=== PATIENT | female | born 1930 | race Caucasian/White ===

== ENCOUNTER 2018-07-21 11:22 | Inpatient (IN) ==
[2018-07-21] MEDS ORDERED: ACETAMINOPHEN 500 MG TABLET PO STA (11:57)
[2018-07-21] MEDS ORDERED: ONDANSETRON 4 MG/2 ML VIAL IV STA (11:57)
[2018-07-21 12:29] LABS: Basophils % 0.2 % (0.0-0.8); Eosinophils % 0.2 % (0.00-10.9); Hematocrit 37.9 VOL% (35.7-47.0); Hemoglobin 12.8 GM/DL (12.0-16.0); Immature Granulocytes % 0.6 %; Immature Granulocytes Absolute 0.06 #; Lymphocytes # 1.2 10*3/uL (1.4-4.0); Lymphocytes % 11.4 % (21.3-54.2); Mean Corpuscular HGB Conc 33.8 GM/DL (32-36); Mean Corpuscular Volume 90.9 FL (87-102); Mean Platelet Volume 9.6 FL (9.6-12.0); Neutrophils % 79.6 % (38.7-73.9); Platelet Count 228 T/CUMM (130-400); Red Blood Count 4.17 MC/CUMM (3.8-5.5); Red Cell Distribution Width 13.3 % (9.3-17.3); White Blood Count 10.6 T/CUMM (4-12)
[2018-07-21 12:52] LABS: Albumin 3.6 G/DL (3.4-5.0); Bilirubin,Total 1.4 MG/DL (0.2-1.0); Calcium 9.3 MG/DL (8.5-10.1); Osmolality,Calculated 256.2 MOS/KG (273-304); Total Protein 8.1 G/DL (6.4-8.3)
[2018-07-21] MEDS ORDERED: MECLIZINE 25 MG TABLET ONE (13:38)
[2018-07-21] MEDS ORDERED: MECLIZINE 25 MG TABLET PO STA (13:47)
[2018-07-21] MEDS ORDERED: ACETAMINOPHEN 325 MG TABLET PO PRN (14:23)
[2018-07-21] MEDS ORDERED: ONDANSETRON 4 MG/2 ML VIAL IV PRN (14:23)
[2018-07-21] MEDS ORDERED: SODIUM CHLORIDE 0.45% 1,000 ML IV SCH (14:30)
[2018-07-21] MEDS: PANTOPRAZOLE 40 MG TABLET PO SCH (16:13)
[2018-07-21] MEDS ORDERED: traMADol 50 MG TABLET PO PRN (16:22)
[2018-07-21] MEDS ORDERED: diphenhydrAMINE CAP 25 MG CAPSULE PO PRN (16:22)
[2018-07-21] MEDS: ALBUTEROL/IPRATROPIUM 3 ML NEB RESP TX SCH (19:43)
[2018-07-21] MEDS: DEXTROSE 5% NACL 0.45% 1,000 ML IV SCH (20:27)
[2018-07-21] MEDS: DOCUSATE SODIUM 100 MG CAPSULE PO SCH (20:36)
[2018-07-21] MEDS: MECLIZINE 12.5 MG TABLET PO SCH (20:37)
[2018-07-22] MEDS: ALBUTEROL/IPRATROPIUM 3 ML NEB RESP TX SCH ×4 (01:47→19:43)
[2018-07-22 05:18] LABS: Basophils % 0.4 % (0.0-0.8); Eosinophils % 0.4 % (0.00-10.9); Hematocrit 36.4 VOL% (35.7-47.0); Hemoglobin 12.4 GM/DL (12.0-16.0); Immature Granulocytes % 0.5 %; Immature Granulocytes Absolute 0.05 #; Lymphocytes # 1.1 10*3/uL (1.4-4.0); Mean Corpuscular HGB Conc 34.1 GM/DL (32-36); Mean Corpuscular Volume 91.2 FL (87-102); Mean Platelet Volume 9.4 FL (9.6-12.0); Monocytes % 11.4 % (1.7-12.7); Neutrophils % 76.3 % (38.7-73.9); Platelet Count 204 T/CUMM (130-400); Red Blood Count 3.99 MC/CUMM (3.8-5.5); Red Cell Distribution Width 13.2 % (9.3-17.3)
[2018-07-22 05:29] LABS: INR 3.4
[2018-07-22 05:43] LABS: Calcium 8.7 MG/DL (8.5-10.1); Osmolality,Calculated 257.9 MOS/KG (273-304)
[2018-07-22] MEDS: EZETIMIBE/SIMVASTATIN 10-40 MG TABLET PO SCH (08:20)
[2018-07-22] MEDS: ASCORBIC ACID 500 MG TABLET PO SCH (08:20)
[2018-07-22] MEDS: ASPIRIN EC 81 MG TABLET PO SCH (08:20)
[2018-07-22] MEDS: PANTOPRAZOLE 40 MG TABLET PO SCH (08:20)
[2018-07-22] MEDS: amLODIPine 5 MG TABLET PO SCH (08:20)
[2018-07-22] MEDS: MECLIZINE 12.5 MG TABLET PO SCH ×4 (08:20→20:41)
[2018-07-22] MEDS: METOPROLOL SUCCINATE XL 100 MG TABLET PO SCH (11:32)
[2018-07-22] MEDS ORDERED: ALBUTEROL/IPRATROPIUM 3 ML NEB RESP TX PRN (11:49)
[2018-07-22] MEDS ORDERED: KETOROLAC 30 MG/1 ML VIAL IV ONE (11:50)
[2018-07-22] MEDS: KETOROLAC 15 MG/1 ML VIAL IV SCH ×2 (13:08→17:32)
[2018-07-22] MEDS: DEXTROSE 5% NACL 0.45% 1,000 ML IV SCH (15:00)
[2018-07-22] MEDS: DOCUSATE SODIUM 100 MG CAPSULE PO SCH (20:40)
[2018-07-23] MEDS: KETOROLAC 15 MG/1 ML VIAL IV SCH ×3 (00:36→11:51)
[2018-07-23] MEDS: ALBUTEROL/IPRATROPIUM 3 ML NEB RESP TX SCH ×3 (01:35→12:47)
[2018-07-23] MEDS: ACETAMINOPHEN 325 MG TABLET PO PRN ×2 (02:46→14:06)
[2018-07-23] MEDS: DEXTROSE 5% NACL 0.45% 1,000 ML IV SCH (05:27)
[2018-07-23 05:28] LABS: Basophils % 0.5 % (0.0-0.8); Eosinophils # 0.2 10*3/uL (0.0-0.87); Eosinophils % 1.9 % (0.00-10.9); Hematocrit 36.2 VOL% (35.7-47.0); Hemoglobin 11.7 GM/DL (12.0-16.0); Immature Granulocytes % 0.5 %; Immature Granulocytes Absolute 0.04 #; Lymphocytes # 1.2 10*3/uL (1.4-4.0); Lymphocytes % 13.7 % (21.3-54.2); Mean Corpuscular HGB Conc 32.3 GM/DL (32-36); Mean Corpuscular Volume 92.8 FL (87-102); Mean Platelet Volume 9.2 FL (9.6-12.0); Monocytes % 12.8 % (1.7-12.7); Neutrophils % 70.6 % (38.7-73.9); Platelet Count 167 T/CUMM (130-400); Red Cell Distribution Width 13.2 % (9.3-17.3); White Blood Count 8.4 T/CUMM (4-12)
[2018-07-23 05:43] LABS: Calcium 8.4 MG/DL (8.5-10.1); Osmolality,Calculated 255.2 MOS/KG (273-304)
[2018-07-23 06:01] LABS: PT Patient Result 31.9 SECS
[2018-07-23] MEDS: ASCORBIC ACID 500 MG TABLET PO SCH (08:12)
[2018-07-23] MEDS: amLODIPine 5 MG TABLET PO SCH (08:12)
[2018-07-23] MEDS: EZETIMIBE/SIMVASTATIN 10-40 MG TABLET PO SCH (08:12)
[2018-07-23] MEDS: ASPIRIN EC 81 MG TABLET PO SCH (08:12)
[2018-07-23] MEDS: METOPROLOL SUCCINATE XL 100 MG TABLET PO SCH (08:12)
[2018-07-23] MEDS: PANTOPRAZOLE 40 MG TABLET PO SCH (08:12)
[2018-07-23] MEDS ORDERED: MULTIVITAMIN (OCUVITE) TABLET PO SCH (09:00)
[2018-07-23] MEDS ORDERED: GLUCOSAM CHON MSM1 C MANG BOSW PO SCH (09:00)
[2018-07-23] MEDS ORDERED: COENZYME Q10 100 MG CAPSULE PO SCH (09:00)
[2018-07-23] MEDS: MECLIZINE 12.5 MG TABLET PO SCH ×2 (10:35→14:14)
[2018-07-23 11:49] VITALS: BP 111/70
== END 2018-07-23 16:52 | disposition home health service (06) | DRG 184 ==
LOC: N.ED 11:22 → N.EDINP 12:51 → N.3E 14:44
PROVIDERS: ADMIT Surgery; ATTEND Surgery

== ENCOUNTER 2018-12-20 02:24 | Inpatient (IN) ==
[2018-12-20] MEDS ORDERED: ONDANSETRON 4 MG/2 ML VIAL IV STA (02:49)
[2018-12-20] MEDS ORDERED: MORPHINE 4 MG/1 ML VIAL IV STA (02:49)
[2018-12-20] MEDS ORDERED: diphenhydrAMINE 50 MG/1 ML VIAL IV STA (02:50)
[2018-12-20] MEDS ORDERED: PIPERACILLIN/TAZOBACTAM 3,375 MG in SODIUM CHLORIDE 0.9% 100 ML IV SCH (03:00)
[2018-12-20 03:08] LABS: Basophils % 0.4 % (0.0-0.8); Eosinophils % 0.1 % (0.00-10.9); Hematocrit 39.4 VOL% (35.7-47.0); Hemoglobin 13.4 GM/DL (12.0-16.0); Immature Granulocytes % 0.5 %; Immature Granulocytes Absolute 0.05 #; Lymphocytes # 0.8 10*3/uL (1.4-4.0); Lymphocytes % 8.1 % (21.3-54.2); Mean Corpuscular Volume 92.7 FL (87-102); Mean Platelet Volume 9.4 FL (9.6-12.0); Monocytes % 5.6 % (1.7-12.7); Neutrophils % 85.3 % (38.7-73.9); Platelet Count 224 T/CUMM (130-400); Red Blood Count 4.25 MC/CUMM (3.8-5.5); White Blood Count 10.1 T/CUMM (4-12)
[2018-12-20 03:21] LABS: INR 1.9; PT Patient Result 20.4 SECS (9.6-12.2); Partial Thromboplastin Time 33.6 SECS (20.8-36.0)
[2018-12-20 03:26] LABS: Albumin 3.7 G/DL (3.4-5.0); Bilirubin,Total 0.8 MG/DL (0.2-1.0); Calcium 9.5 MG/DL (8.5-10.1); Osmolality,Calculated 272.2 MOS/KG (273-304); Total Protein 7.8 G/DL (6.4-8.3)
[2018-12-20] MEDS ORDERED: INFLUENZA VIRUS VACCINE 0.5 ML SYRINGE IM ONE (04:03)
[2018-12-20] MEDS: DEXTROSE 5% LACTATED RINGERS 1,000 ML IV SCH ×3 (04:17→23:45)
[2018-12-20] MEDS ORDERED: CLORAZEPATE 3.75 MG TABLET PO PRN (07:34)
[2018-12-20] MEDS: EZETIMIBE/SIMVASTATIN 10-40 MG TABLET PO SCH (08:40)
[2018-12-20] MEDS: GLUCOSAMINE 500 MG TABLET PO SCH (08:40)
[2018-12-20] MEDS: amLODIPine 5 MG TABLET PO SCH (08:41)
[2018-12-20] MEDS: MULTIVITAMIN (OCUVITE) TABLET PO SCH (08:41)
[2018-12-20] MEDS: ASPIRIN EC 81 MG TABLET PO SCH (08:41)
[2018-12-20] MEDS: ASCORBIC ACID 500 MG TABLET PO SCH (08:41)
[2018-12-20] MEDS: METOPROLOL SUCCINATE XL 100 MG TABLET PO SCH (08:42)
[2018-12-20] MEDS: MORPHINE 4 MG/1 ML VIAL IV PRN ×2 (08:42→17:38)
[2018-12-20] MEDS: ONDANSETRON 4 MG/2 ML VIAL IV PRN ×2 (08:42→17:38)
[2018-12-20] MEDS: PANTOPRAZOLE 40 MG VIAL IV SCH (08:42)
[2018-12-20] MEDS ORDERED: ceFAZolin 1,000 MG in SYRINGE 1 EACH IV ONE (09:35)
[2018-12-20] MEDS: COENZYME Q10 100 MG CAPSULE PO SCH (10:58)
[2018-12-20 19:21] LABS: INR 2.2
[2018-12-20 19:26] LABS: PT Patient Result 23.7 SECS (9.6-12.2)
[2018-12-20] MEDS ORDERED: SODIUM CHLORIDE 0.9% 1,000 ML IV PRN (19:46)
[2018-12-20] MEDS: DOCUSATE SODIUM 100 MG CAPSULE PO SCH (21:45)
[2018-12-20] MEDS ORDERED: FUROSEMIDE 20 MG/2 ML VIAL IV ONE (23:34)
[2018-12-20] MEDS ORDERED: diphenhydrAMINE 50 MG/1 ML VIAL IV ONE (23:35)
[2018-12-21 01:20] LABS: INR 1.7; PT Patient Result 18.7 SECS (9.6-12.2)
[2018-12-21 05:46] LABS: INR 1.8; PT Patient Result 19.9 SECS (9.6-12.2)
[2018-12-21] MEDS ORDERED: PHYTONADIONE INJ 10 MG in SODIUM CHLORIDE 0.9% 50 ML IV ONE (06:55)
[2018-12-21] MEDS ORDERED: ceFAZolin 1,000 MG in SYRINGE 1 EACH IV ONE (07:00)
[2018-12-21 09:47] LABS: INR 1.6; PT Patient Result 17.5 SECS (9.6-12.2)
[2018-12-21] MEDS: DEXTROSE 5% LACTATED RINGERS 1,000 ML IV SCH ×3 (10:19→18:50)
[2018-12-21] MEDS ORDERED: PHYTONADIONE 5 MG/5 ML ORAL.SYR PO ONE (10:55)
[2018-12-21] MEDS: PANTOPRAZOLE 40 MG VIAL IV SCH (11:18)
[2018-12-21] MEDS: amLODIPine 5 MG TABLET PO SCH (12:17)
[2018-12-21] MEDS: METOPROLOL SUCCINATE XL 100 MG TABLET PO SCH (12:17)
[2018-12-21] MEDS: ASPIRIN EC 81 MG TABLET PO SCH (12:42)
[2018-12-21] MEDS: COENZYME Q10 100 MG CAPSULE PO SCH (12:42)
[2018-12-21] MEDS: MULTIVITAMIN (OCUVITE) TABLET PO SCH (12:43)
[2018-12-21] MEDS: GLUCOSAMINE 500 MG TABLET PO SCH (12:43)
[2018-12-21] MEDS: EZETIMIBE/SIMVASTATIN 10-40 MG TABLET PO SCH (12:50)
[2018-12-21] MEDS: ASCORBIC ACID 500 MG TABLET PO SCH (12:50)
[2018-12-21] MEDS: ONDANSETRON 4 MG/2 ML VIAL IV PRN (16:13)
[2018-12-21] MEDS ORDERED: HYDROmorphone 2 MG/1 ML VIAL IV PRN (17:12)
[2018-12-21] MEDS: oxyCODONE/ACETAMINOPHEN 5-325 MG TABLET PO PRN ×2 (17:20→18:05)
[2018-12-21] MEDS: SIMETHICONE CHEW 80 MG TABLET PO SCH (21:11)
[2018-12-22] MEDS: ONDANSETRON 4 MG/2 ML VIAL IV PRN ×2 (03:56→09:24)
[2018-12-22] MEDS: oxyCODONE/ACETAMINOPHEN 5-325 MG TABLET PO PRN ×2 (03:59→21:25)
[2018-12-22] MEDS: DOCUSATE SODIUM 100 MG CAPSULE PO SCH ×2 (04:08→21:26)
[2018-12-22 05:51] LABS: Basophils % 0.5 % (0.0-0.8); Eosinophils # 0.1 10*3/uL (0.0-0.87); Eosinophils % 2.1 % (0.00-10.9); Hematocrit 45.6 VOL% (35.7-47.0); Hemoglobin 15.1 GM/DL (12.0-16.0); Immature Granulocytes % 0.2 %; Immature Granulocytes Absolute 0.01 #; Lymphocytes % 15.5 % (21.3-54.2); Mean Corpuscular HGB Conc 33.1 GM/DL (32-36); Mean Corpuscular Volume 93.8 FL (87-102); Mean Platelet Volume 9.8 FL (9.6-12.0); Monocytes % 13.7 % (1.7-12.7); Platelet Count 236 T/CUMM (130-400); Red Blood Count 4.86 MC/CUMM (3.8-5.5); Red Cell Distribution Width 12.9 % (9.3-17.3); White Blood Count 6.6 T/CUMM (4-12)
[2018-12-22 06:00] LABS: INR 1.1; PT Patient Result 11.4 SECS (9.6-12.2)
[2018-12-22 06:07] LABS: Calcium 9.3 MG/DL (8.5-10.1)
[2018-12-22] MEDS ORDERED: ceFAZolin 1,000 MG in SYRINGE 1 EACH IV ONE (06:30)
[2018-12-22] MEDS ORDERED: BUPIVACAINE MPF 0.25% 30 ML VIAL ONE (06:36)
[2018-12-22] MEDS ORDERED: TISSUE ADHESIVE 1 EACH APPLICATOR TOP ONE ×2 (06:36→08:30)
[2018-12-22] MEDS ORDERED: LIDOCAINE 1%/EPI INJ 20 ML VIAL ONE (06:36)
[2018-12-22] MEDS: POTASSIUM CHLORIDE RIDER 10 MEQ in PREMIX 1 EACH IV SCH ×8 (07:00→21:20)
[2018-12-22] MEDS ORDERED: BUPIVACAINE 0.5% 50 ML VIAL ONE (07:06)
[2018-12-22] MEDS ORDERED: DEXAMETHASONE 4 MG/1 ML VIAL ONE ×2 (07:06→09:15)
[2018-12-22] MEDS ORDERED: EPINEPHrine 1 MG/ML VIAL ONE (07:06)
[2018-12-22] MEDS ORDERED: POTASSIUM CHLORIDE RIDER 100 ML IV ONE (08:06)
[2018-12-22] MEDS: ASPIRIN EC 81 MG TABLET PO SCH (09:00)
[2018-12-22] MEDS: EZETIMIBE/SIMVASTATIN 10-40 MG TABLET PO SCH (09:00)
[2018-12-22] MEDS: SIMETHICONE CHEW 80 MG TABLET PO SCH ×4 (09:00→21:19)
[2018-12-22] MEDS: GLUCOSAMINE 500 MG TABLET PO SCH (09:00)
[2018-12-22] MEDS: MULTIVITAMIN (OCUVITE) TABLET PO SCH (09:00)
[2018-12-22] MEDS: COENZYME Q10 100 MG CAPSULE PO SCH (09:00)
[2018-12-22] MEDS: ASCORBIC ACID 500 MG TABLET PO SCH (09:00)
[2018-12-22] MEDS ORDERED: SEVOFLURANE 1 UNIT/15 MINUTE INH ONE (09:14)
[2018-12-22] MEDS ORDERED: PROPOFOL 200 MG/20 ML VIAL IV ONE (09:14)
[2018-12-22] MEDS ORDERED: LIDOCAINE 2% 5 ML VIAL ONE (09:14)
[2018-12-22] MEDS ORDERED: ETOMIDATE 40 MG/20 ML VIAL IV ONE (09:15)
[2018-12-22] MEDS ORDERED: fentaNYL 100 MCG/2 ML VIAL ONE (09:15)
[2018-12-22] MEDS ORDERED: MIDAZOLAM 2 MG/2 ML VIAL ONE (09:15)
[2018-12-22] MEDS ORDERED: GLYCOPYRROLATE 0.4 MG/2 ML VIAL ONE (09:15)
[2018-12-22] MEDS ORDERED: ONDANSETRON 4 MG/2 ML VIAL ONE (09:15)
[2018-12-22] MEDS ORDERED: ROCURONIUM 100 MG/10 ML VIAL IV ONE (09:16)
[2018-12-22] MEDS ORDERED: PHENYLEPHRINE 1 MG/10 ML SYRINGE IV ONE (09:16)
[2018-12-22] MEDS ORDERED: LACTATED RINGERS 1,000 ML IV ONE (09:16)
[2018-12-22] MEDS ORDERED: NEOSTIGMINE 10 MG/10 ML VIAL ONE (09:16)
[2018-12-22] MEDS ORDERED: SUCCINYLCHOLINE 200 MG/10 ML VIAL ONE (09:16)
[2018-12-22] MEDS ORDERED: ONDANSETRON 4 MG/2 ML VIAL IV PRN (09:19)
[2018-12-22] MEDS ORDERED: HYDROmorphone 2 MG/1 ML VIAL IV PRN (09:19)
[2018-12-22] MEDS: METOPROLOL SUCCINATE XL 100 MG TABLET PO SCH (14:30)
[2018-12-22] MEDS: amLODIPine 5 MG TABLET PO SCH (14:30)
[2018-12-22] MEDS: PANTOPRAZOLE 40 MG VIAL IV SCH (14:30)
[2018-12-22] MEDS: DEXTROSE 5% LACTATED RINGERS 1,000 ML IV SCH (14:43)
[2018-12-22] MEDS ORDERED: WARFARIN 3 MG TABLET PO SCH (18:00)
[2018-12-22] MEDS ORDERED: WARFARIN 1 MG TABLET PO SCH (18:00)
[2018-12-23 05:16] LABS: Basophils % 0.1 % (0.0-0.8); Hematocrit 36.6 VOL% (35.7-47.0); Hemoglobin 12.1 GM/DL (12.0-16.0); Immature Granulocytes % 0.4 %; Immature Granulocytes Absolute 0.04 #; Lymphocytes # 0.7 10*3/uL (1.4-4.0); Lymphocytes % 7.2 % (21.3-54.2); Mean Corpuscular HGB Conc 33.1 GM/DL (32-36); Mean Corpuscular Volume 94.1 FL (87-102); Mean Platelet Volume 9.7 FL (9.6-12.0); Monocytes % 8.5 % (1.7-12.7); Neutrophils % 83.8 % (38.7-73.9); Platelet Count 209 T/CUMM (130-400); Red Blood Count 3.89 MC/CUMM (3.8-5.5); Red Cell Distribution Width 12.8 % (9.3-17.3); White Blood Count 9.3 T/CUMM (4-12)
[2018-12-23 05:24] LABS: INR 1.1; PT Patient Result 12.2 SECS (9.6-12.2)
[2018-12-23 05:44] LABS: Calcium 8.4 MG/DL (8.5-10.1); Osmolality,Calculated 266.4 MOS/KG (273-304)
[2018-12-23] MEDS: DEXTROSE 5% LACTATED RINGERS 1,000 ML IV SCH (08:03)
[2018-12-23] MEDS: PANTOPRAZOLE 40 MG VIAL IV SCH (08:32)
[2018-12-23] MEDS: METOPROLOL SUCCINATE XL 100 MG TABLET PO SCH (08:33)
[2018-12-23] MEDS: ASCORBIC ACID 500 MG TABLET PO SCH (08:33)
[2018-12-23] MEDS: SIMETHICONE CHEW 80 MG TABLET PO SCH (08:33)
[2018-12-23] MEDS: COENZYME Q10 100 MG CAPSULE PO SCH (08:33)
[2018-12-23] MEDS: MULTIVITAMIN (OCUVITE) TABLET PO SCH (08:33)
[2018-12-23] MEDS: EZETIMIBE/SIMVASTATIN 10-40 MG TABLET PO SCH (08:33)
[2018-12-23] MEDS: GLUCOSAMINE 500 MG TABLET PO SCH (08:33)
[2018-12-23] MEDS: ASPIRIN EC 81 MG TABLET PO SCH (08:33)
[2018-12-23] MEDS: amLODIPine 5 MG TABLET PO SCH (08:33)
[2018-12-23] MEDS: POTASSIUM CHLORIDE RIDER 10 MEQ in PREMIX 1 EACH IV SCH (09:15)
[2018-12-23] MEDS ORDERED: MAGNESIUM OXIDE 400 MG TABLET PO SCH (09:24)
[2018-12-23 11:46] VITALS: BP 144/94
[2018-12-23] MEDS ORDERED: MAGNESIUM OXIDE 400 MG TABLET PO ONE (13:13)
== END 2018-12-23 13:47 | disposition home or self-care (01) | DRG 351 ==
LOC: EDBD → EDUNIT# → N.ED 02:24 → N.EDINP 02:24 → N.3E 03:32
PROVIDERS: ADMIT Surgery; ATTEND Surgery

== ENCOUNTER 2021-08-03 06:50 | Inpatient (IN) ==
[2021-07-31 12:56] LABS: Basophils # 0.1 10*3/uL (0.0-0.2); Basophils % 0.7 % (0.0-0.8); Eosinophils # 0.1 10*3/uL (0.0-0.87); Eosinophils % 1.2 % (0.00-10.9); Hematocrit 30.7 VOL% (35.7-47.0); Hemoglobin 9.9 GM/DL (12.0-16.0); Immature Granulocytes % 0.4 %; Immature Granulocytes Absolute 0.03 #; Mean Corpuscular HGB Conc 32.2 GM/DL (32-36); Mean Corpuscular Volume 88.7 FL (87-102); Mean Platelet Volume 9.1 FL (9.6-12.0); Monocytes # 0.8 10*3/uL (0.11-0.8); Monocytes % 9.9 % (1.7-12.7); Neutrophils % 74.8 % (38.7-73.9); Platelet Count 345 T/CUMM (130-400); Red Blood Count 3.46 MC/CUMM (3.8-5.5); Red Cell Distribution Width 13.5 % (9.3-17.3)
[2021-07-31 13:07] LABS: Calcium 8.7 MG/DL (8.5-10.1); Osmolality,Calculated 261.8 MOS/KG (273-304); Potassium 4.9 MMOL/L (3.5-5.1)
[2021-07-31 13:08] LABS: INR 2.6; PT Patient Result 26.6 SECS (10.5-12.0); Partial Thromboplastin Time 42.6 SECS (23.8-32.1)
[~2021-08-03 06:50] MED LIST: ALVIMOPAN 12 MG CAPSULE PO ONE; ERTAPENEM 1,000 MG in SODIUM CHLORIDE 0.9% 100 ML IV ONE
[2021-08-03 07:43] LABS: INR 1.3; PT Patient Result 14.4 SECS (10.5-12.0); Partial Thromboplastin Time 34.2 SECS (23.8-32.1)
[2021-08-03 07:59] LABS: Calcium 8.9 MG/DL (8.5-10.1); Osmolality,Calculated 263.7 MOS/KG (273-304); Potassium 4.8 MMOL/L (3.5-5.1)
[2021-08-03] MEDS ORDERED: LACTATED RINGERS 1,000 ML IV SCH (08:30)
[2021-08-03] MEDS ORDERED: FAMOTIDINE 20 MG TABLET PO ONE (08:43)
[2021-08-03] MEDS ORDERED: DIAZEPAM 5 MG TABLET PO ONE (08:43)
[2021-08-03] MEDS ORDERED: DEXAMETHASONE 4 MG/1 ML VIAL ONE (08:58)
[2021-08-03] MEDS ORDERED: MIDAZOLAM 2 MG/2 ML VIAL ONE (08:58)
[2021-08-03] MEDS ORDERED: ROPIVACAINE 0.5% 30 ML VIAL ONE (08:58)
[2021-08-03] MEDS ORDERED: fentaNYL 100 MCG/2 ML VIAL ONE (08:58)
[2021-08-03] MEDS ORDERED: ONDANSETRON 4 MG/2 ML VIAL ONE ×2 (08:58→12:40)
[2021-08-03] MEDS ORDERED: LIDOCAINE 2% 5 ML VIAL ONE ×2 (08:58→11:03)
[2021-08-03] MEDS ORDERED: ETOMIDATE 40 MG/20 ML VIAL IV ONE (11:03)
[2021-08-03] MEDS ORDERED: SODIUM CHLORIDE 0.9% 100 ML IV ONE (11:03)
[2021-08-03] MEDS ORDERED: propofoL 200 MG/20 ML VIAL IV ONE (11:03)
[2021-08-03] MEDS ORDERED: SEVOFLURANE 1 UNIT/15 MINUTE INH ONE ×6 (11:03→12:02)
[2021-08-03] MEDS ORDERED: ROCURONIUM 50 MG/5 ML VIAL IV ONE (11:03)
[2021-08-03] MEDS ORDERED: PHENYLEPHRINE 10 MG/1 ML VIAL IV ONE (11:04)
[2021-08-03] MEDS ORDERED: INDOCYANINE GREEN 25 MG VIAL IV ONE (11:21)
[2021-08-03] MEDS ORDERED: TISSUE ADHESIVE 1 EACH APPLICATOR TOP ONE (11:33)
[2021-08-03] MEDS ORDERED: SUGAMMADEX 200 MG/2 ML VIAL IV ONE (11:56)
[2021-08-03 12:05] LABS: Bacteria,Urine Occasional /HPF (Few); Bilirubin,Urine Negative (Negative); Blood, Urine Negative (Negative); Glucose,Urine (UA) Negative (Negative); Ketones,Urine Negative (Negative); Mucus,Urine Occasional /LPF (Occasional); Nitrite,Urine Negative (Negative); Protein,Urine Negative (Negative); RBC,Urine 1 /HPF (0-4); Urine Appearance Clear (Clear); Urine Color Yellow (Yellow); Urine Urobilinogen 0.2 eU/dL (<2.0)
[2021-08-03] MEDS ORDERED: MEPERIDINE 25 MG/1 ML VIAL ONE (12:40)
[2021-08-03] MEDS ORDERED: HYDROmorphone 1 MG/1 ML SYRINGE IV PRN ×2 (12:41→12:42)
[2021-08-03] MEDS ORDERED: ONDANSETRON 4 MG/2 ML VIAL IV PRN ×2 (12:41→12:42)
[2021-08-03] MEDS ORDERED: MEPERIDINE 25 MG/1 ML VIAL IV PRN (12:48)
[2021-08-03] MEDS: LACTATED RINGERS 1,000 ML IV SCH (13:05)
[2021-08-03] MEDS: METOPROLOL TARTRATE 50 MG TABLET PO SCH ×2 (13:05→21:22)
[2021-08-03] MEDS ORDERED: KETOROLAC 30 MG/1 ML VIAL ONE (13:11)
[2021-08-03] MEDS: KETOROLAC 15 MG/1 ML VIAL IV SCH ×2 (13:13→19:05)
[2021-08-03 13:38] LABS: Basophils % 0.2 % (0.0-0.8); Hematocrit 29.1 VOL% (35.7-47.0); Hemoglobin 9.1 GM/DL (12.0-16.0); Immature Granulocytes % 0.6 %; Immature Granulocytes Absolute 0.05 #; Lymphocytes # 0.6 10*3/uL (1.4-4.0); Lymphocytes % 6.9 % (21.3-54.2); Mean Corpuscular HGB Conc 31.3 GM/DL (32-36); Mean Corpuscular Volume 89.3 FL (87-102); Mean Platelet Volume 8.5 FL (9.6-12.0); Monocytes # 0.2 10*3/uL (0.11-0.8); Neutrophils % 90.3 % (38.7-73.9); Platelet Count 293 T/CUMM (130-400); Red Blood Count 3.26 MC/CUMM (3.8-5.5); Red Cell Distribution Width 13.3 % (9.3-17.3); White Blood Count 8.7 T/CUMM (4-12)
[2021-08-03 14:04] LABS: Calcium 8.2 MG/DL (8.5-10.1); Osmolality,Calculated 264.7 MOS/KG (273-304); Potassium 4.1 MMOL/L (3.5-5.1)
[2021-08-03] MEDS: amLODIPine 5 MG TABLET PO SCH (21:20)
[2021-08-03] MEDS: SIMVASTATIN 40 MG TABLET PO SCH (21:20)
[2021-08-03] MEDS: FERROUS SULFATE 325 MG TABLET PO SCH (21:20)
[2021-08-03] MEDS: SUCRALFATE 1 GM/10 ML UDCUP PO SCH (21:20)
[2021-08-03] MEDS: CARBIDOPA/LEVODOPA 25-100 MG TABLET PO SCH (21:20)
[2021-08-03] MEDS: ALVIMOPAN 12 MG CAPSULE PO SCH (21:20)
[2021-08-04] MEDS: LACTATED RINGERS 1,000 ML IV SCH ×2 (00:16→09:18)
[2021-08-04] MEDS: KETOROLAC 15 MG/1 ML VIAL IV SCH ×4 (01:15→18:36)
[2021-08-04 05:18] LABS: Basophils % 0.1 % (0.0-0.8); Hematocrit 24.4 VOL% (35.7-47.0); Hemoglobin 7.7 GM/DL (12.0-16.0); Immature Granulocytes % 0.4 %; Immature Granulocytes Absolute 0.07 #; Lymphocytes # 0.5 10*3/uL (1.4-4.0); Lymphocytes % 3.2 % (21.3-54.2); Mean Corpuscular HGB Conc 31.6 GM/DL (32-36); Mean Corpuscular Volume 89.4 FL (87-102); Mean Platelet Volume 9.2 FL (9.6-12.0); Neutrophils % 90.3 % (38.7-73.9); Platelet Count 248 T/CUMM (130-400); Red Blood Count 2.73 MC/CUMM (3.8-5.5); Red Cell Distribution Width 13.4 % (9.3-17.3); White Blood Count 16.2 T/CUMM (4-12)
[2021-08-04 05:38] LABS: Calcium 8.7 MG/DL (8.5-10.1); Osmolality,Calculated 264.7 MOS/KG (273-304); Potassium 4.7 MMOL/L (3.5-5.1)
[2021-08-04 05:40] LABS: Band Neutrophils 2 % (0-10); Hypochromia Slight; Lymphocytes 2 % (20-55); Microcytosis Slight; Platelet Estimate Adequate; Total Cells Counted 100
[2021-08-04] MEDS: COENZYME Q10 100 MG CAPSULE PO SCH (09:15)
[2021-08-04] MEDS: MULTIVITAMIN (OCUVITE) TABLET PO SCH (09:15)
[2021-08-04] MEDS: ALVIMOPAN 12 MG CAPSULE PO SCH ×2 (09:15→21:53)
[2021-08-04] MEDS: busPIRone 5 MG TABLET PO PRN (09:16)
[2021-08-04] MEDS: WARFARIN 2.5 MG TABLET PO SCH (09:16)
[2021-08-04] MEDS: FERROUS SULFATE 325 MG TABLET PO SCH ×2 (09:17→21:53)
[2021-08-04] MEDS: ENOXAPARIN 40 MG/0.4 ML SYRINGE SUBCUT SCH (09:17)
[2021-08-04] MEDS: METOPROLOL TARTRATE 50 MG TABLET PO SCH ×2 (09:17→21:53)
[2021-08-04] MEDS: CRANBERRY 400 MG PO SCH (09:19)
[2021-08-04] MEDS: SUCRALFATE 1 GM/10 ML UDCUP PO SCH ×2 (09:20→21:53)
[2021-08-04] MEDS: MULTIVITAMIN WITH MINERALS PO SCH (09:22)
[2021-08-04 10:44] LABS: Hematocrit 26.8 VOL% (35.7-47.0); Hemoglobin 8.1 GM/DL (12.0-16.0)
[2021-08-04] MEDS: CARBIDOPA/LEVODOPA 25-100 MG TABLET PO SCH (21:53)
[2021-08-04] MEDS: SIMVASTATIN 40 MG TABLET PO SCH (21:53)
[2021-08-04] MEDS: amLODIPine 5 MG TABLET PO SCH (21:56)
[2021-08-05] MEDS: KETOROLAC 15 MG/1 ML VIAL IV SCH ×4 (02:03→18:37)
[2021-08-05 05:24] LABS: Basophils % 0.1 % (0.0-0.8); Eosinophils % 0.1 % (0.00-10.9); Hematocrit 21.5 VOL% (35.7-47.0); Hemoglobin 6.8 GM/DL (12.0-16.0); Immature Granulocytes % 0.6 %; Immature Granulocytes Absolute 0.09 #; Lymphocytes # 0.7 10*3/uL (1.4-4.0); Lymphocytes % 4.8 % (21.3-54.2); Mean Corpuscular HGB Conc 31.6 GM/DL (32-36); Mean Corpuscular Volume 88.5 FL (87-102); Monocytes # 0.8 10*3/uL (0.11-0.8); Monocytes % 5.8 % (1.7-12.7); Neutrophils % 88.6 % (38.7-73.9); Platelet Count 229 T/CUMM (130-400); Red Blood Count 2.43 MC/CUMM (3.8-5.5); Red Cell Distribution Width 13.4 % (9.3-17.3); White Blood Count 14.1 T/CUMM (4-12)
[2021-08-05 05:46] LABS: Calcium 8.5 MG/DL (8.5-10.1); Osmolality,Calculated 257.1 MOS/KG (273-304); Potassium 4.2 MMOL/L (3.5-5.1)
[2021-08-05 05:49] LABS: Hypochromia Slight; Lymphocytes 2 % (20-55); Microcytosis Slight; Platelet Estimate Adequate; Total Cells Counted 100
[2021-08-05] MEDS ORDERED: SODIUM CHLORIDE 0.9% 1,000 ML IV PRN ×3 (08:00→19:49)
[2021-08-05] MEDS: CRANBERRY 400 MG PO SCH (10:39)
[2021-08-05] MEDS: SUCRALFATE 1 GM/10 ML UDCUP PO SCH ×2 (10:40→21:34)
[2021-08-05] MEDS: VALSARTAN 80 MG TABLET PO SCH ×2 (10:41→21:34)
[2021-08-05] MEDS: COENZYME Q10 100 MG CAPSULE PO SCH (10:41)
[2021-08-05] MEDS: FERROUS SULFATE 325 MG TABLET PO SCH ×2 (10:41→21:34)
[2021-08-05] MEDS: MULTIVITAMIN (OCUVITE) TABLET PO SCH (10:41)
[2021-08-05] MEDS: ENOXAPARIN 40 MG/0.4 ML SYRINGE SUBCUT SCH ×2 (10:43→11:19)
[2021-08-05] MEDS: ALVIMOPAN 12 MG CAPSULE PO SCH ×2 (10:43→21:33)
[2021-08-05] MEDS: busPIRone 5 MG TABLET PO PRN (10:43)
[2021-08-05] MEDS: METOPROLOL TARTRATE 50 MG TABLET PO SCH ×2 (10:44→21:34)
[2021-08-05] MEDS: MULTIVITAMIN WITH MINERALS PO SCH (10:44)
[2021-08-05 10:56] LABS: INR 1.6; PT Patient Result 17.5 SECS (10.5-12.0); Partial Thromboplastin Time 32.3 SECS (23.8-32.1)
[2021-08-05] MEDS: WARFARIN 2.5 MG TABLET PO SCH (11:33)
[2021-08-05 16:54] LABS: Hematocrit 24.4 VOL% (35.7-47.0); Hemoglobin 7.6 GM/DL (12.0-16.0)
[2021-08-05] MEDS ORDERED: PHYTONADIONE 5 MG/5 ML ORAL.SYR PO ONE (18:30)
[2021-08-05] MEDS: CARBIDOPA/LEVODOPA 25-100 MG TABLET PO SCH (21:33)
[2021-08-05] MEDS: SIMVASTATIN 40 MG TABLET PO SCH (21:34)
[2021-08-05] MEDS: amLODIPine 5 MG TABLET PO SCH (21:34)
[2021-08-06] MEDS: KETOROLAC 15 MG/1 ML VIAL IV SCH ×4 (01:12→21:08)
[2021-08-06 05:39] LABS: INR 1.2; PT Patient Result 13.2 SECS (10.5-12.0); Partial Thromboplastin Time 37.6 SECS (23.8-32.1)
[2021-08-06 05:45] LABS: Basophils % 0.2 % (0.0-0.8); Eosinophils # 0.1 10*3/uL (0.0-0.87); Eosinophils % 1.1 % (0.00-10.9); Hematocrit 19.6 VOL% (35.7-47.0); Immature Granulocytes % 0.5 %; Immature Granulocytes Absolute 0.05 #; Lymphocytes # 0.9 10*3/uL (1.4-4.0); Lymphocytes % 8.1 % (21.3-54.2); Mean Corpuscular HGB Conc 32.1 GM/DL (32-36); Mean Corpuscular Volume 87.5 FL (87-102); Mean Platelet Volume 9.4 FL (9.6-12.0); Monocytes # 0.7 10*3/uL (0.11-0.8); Monocytes % 6.9 % (1.7-12.7); Neutrophils % 83.2 % (38.7-73.9); Platelet Count 255 T/CUMM (130-400); Red Blood Count 2.24 MC/CUMM (3.8-5.5); Red Cell Distribution Width 13.5 % (9.3-17.3); White Blood Count 10.6 T/CUMM (4-12)
[2021-08-06 05:49] LABS: Hemoglobin 6.3 GM/DL (12.0-16.0)
[2021-08-06] MEDS ORDERED: SODIUM CHLORIDE 0.9% 1,000 ML IV PRN (07:32)
[2021-08-06] MEDS: MULTIVITAMIN WITH MINERALS PO SCH (09:49)
[2021-08-06] MEDS: CRANBERRY 400 MG PO SCH (09:49)
[2021-08-06] MEDS: VALSARTAN 80 MG TABLET PO SCH ×2 (09:50→21:05)
[2021-08-06] MEDS: METOPROLOL TARTRATE 50 MG TABLET PO SCH ×2 (09:50→21:05)
[2021-08-06] MEDS: COENZYME Q10 100 MG CAPSULE PO SCH (09:50)
[2021-08-06] MEDS: ALVIMOPAN 12 MG CAPSULE PO SCH ×2 (09:50→21:04)
[2021-08-06] MEDS: SUCRALFATE 1 GM/10 ML UDCUP PO SCH ×2 (09:50→21:08)
[2021-08-06] MEDS: FERROUS SULFATE 325 MG TABLET PO SCH ×2 (09:50→21:05)
[2021-08-06] MEDS: MULTIVITAMIN (OCUVITE) TABLET PO SCH (09:51)
[2021-08-06 14:54] LABS: Hematocrit 32.3 VOL% (35.7-47.0); Hemoglobin 10.7 GM/DL (12.0-16.0)
[2021-08-06] MEDS: CARBIDOPA/LEVODOPA 25-100 MG TABLET PO SCH (21:05)
[2021-08-06] MEDS: amLODIPine 5 MG TABLET PO SCH (21:05)
[2021-08-06] MEDS: SIMVASTATIN 40 MG TABLET PO SCH (21:05)
[2021-08-07] MEDS: KETOROLAC 15 MG/1 ML VIAL IV SCH ×3 (01:05→15:19)
[2021-08-07 05:50] LABS: Basophils % 0.4 % (0.0-0.8); Eosinophils # 0.1 10*3/uL (0.0-0.87); Eosinophils % 1.1 % (0.00-10.9); Hematocrit 28.7 VOL% (35.7-47.0); Hemoglobin 9.6 GM/DL (12.0-16.0); Immature Granulocytes % 0.6 %; Immature Granulocytes Absolute 0.06 #; Lymphocytes # 0.6 10*3/uL (1.4-4.0); Lymphocytes % 6.4 % (21.3-54.2); Mean Corpuscular HGB Conc 33.4 GM/DL (32-36); Mean Corpuscular Volume 88.6 FL (87-102); Monocytes # 0.6 10*3/uL (0.11-0.8); Monocytes % 6.1 % (1.7-12.7); Neutrophils % 85.4 % (38.7-73.9); Platelet Count 256 T/CUMM (130-400); Red Blood Count 3.24 MC/CUMM (3.8-5.5); Red Cell Distribution Width 13.8 % (9.3-17.3)
[2021-08-07 06:03] LABS: Calcium 8.9 MG/DL (8.5-10.1); Osmolality,Calculated 258.9 MOS/KG (273-304); Potassium 3.8 MMOL/L (3.5-5.1)
[2021-08-07] MEDS: SUCRALFATE 1 GM/10 ML UDCUP PO SCH (10:35)
[2021-08-07] MEDS: COENZYME Q10 100 MG CAPSULE PO SCH (10:35)
[2021-08-07] MEDS: VALSARTAN 80 MG TABLET PO SCH (10:36)
[2021-08-07] MEDS: METOPROLOL TARTRATE 50 MG TABLET PO SCH (10:36)
[2021-08-07] MEDS: CRANBERRY 400 MG PO SCH (10:36)
[2021-08-07] MEDS: FERROUS SULFATE 325 MG TABLET PO SCH (10:36)
[2021-08-07] MEDS: ALVIMOPAN 12 MG CAPSULE PO SCH (10:36)
[2021-08-07] MEDS: MULTIVITAMIN WITH MINERALS PO SCH (10:37)
[2021-08-07] MEDS: MULTIVITAMIN (OCUVITE) TABLET PO SCH (10:37)
[2021-08-07 12:32] VITALS: BP 119/66
[2021-08-07 12:39] LABS: Hematocrit 30.1 VOL% (35.7-47.0); Hemoglobin 10.2 GM/DL (12.0-16.0)
== END 2021-08-07 16:04 | disposition home or self-care (01) | DRG 330 ==
LOC: N.OR 06:50 → N.SDSINP 06:53 → N.TELES 14:15
PROVIDERS: ADMIT Surgery; ATTEND Surgery